=== PATIENT | male | born 1995 | race Hispanic/Latino ===

== ENCOUNTER 2020-01-18 19:16 | Emergency (ER) | payer SELFPAY ==
[2020-01-18] MEDS ORDERED: IBUPROFEN 400 MG TAB ONE (19:58)
[2020-01-18] MEDS ORDERED: BUPIVACAINE 0.5% PF 10 ML VIAL ONE (19:58)
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
== END 2020-01-18 22:10 | disposition home or self-care (01) ==
LOC: ER 19:16
PROC: 0CQ0XZZ Repair Upper Lip, External Approach (ICD-10-PCS; principal; 2020-01-18)
DX: S02.2XXA Fracture of nasal bones, initial encounter for closed fracture (principal); S01.511A Laceration without foreign body of lip, initial encounter; Y04.2XXA Assault by strike against or bumped into by another person, initial encounter; Y93.9 Activity, unspecified; Y92.9 Unspecified place or not applicable
CPT/HCPCS: 70450; 72125; 99284